=== PATIENT | male | born 1930 ===

== ENCOUNTER 2016-07-03 10:52 | Inpatient (IN) | payer OTHER ==
--- NOTE | 2016-07-03 19:14 | GHP ---
[f rep st] HISTORY AND PHYSICAL POST ADMISSION PHYSICIAN EVALUATION AND REHABILITATION TREATMENT PLAN DATE OF ADMISSION: 07/03/2016 DATE OF EVALUATION: July 03, 2016. TIME OF EVALUATION: 1700. REFERRING FACILITY: [facility]. REFERRING PHYSICIAN: Dr. Arriaga IMPAIRMENT GROUP: 1.2. 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 ETIOLOGIC DIAGNOSIS: Right body involvement (left brain). HISTORY OF PRESENT ILLNESS: Mr. Blackman was admitted to [facility] on 06/25/2016, with a headache, and right upper and lower extremity numbness and weakness. He also had difficulty speaking. A head CT was done, which showed a left thalamic hemorrhage of approximately 1.8 cm. He was quite hypertensive with a systolic blood pressure over 200. He has a history of pulmonary emboli and had been on rivaroxaban. This was reversed pharmacologically, and his blood pressure was controlled initially with nicardipine and hydralazine. Subsequently, he was put on amlodipine with improved blood pressure control. He had delirium and combativeness while he was in the intensive care unit, requiring treatment with Precedex. He recovered from the delirium. He was eventually treated with quetiapine, and did not continue to be combative. Due to his history of pulmonary emboli and the contraindication of anticoagulation due to his hemorrhage, an inferior vena cava filter was placed to protect against subsequent pulmonary emboli. He also had a duplex venous ultrasound of the legs bilaterally, which showed no evidence of a lower extremity DVT. He had serial brain imaging, which showed stable hemorrhage. He was followed by a neurosurgeon, but there was no indication for surgery. He was initially not very willing to participate in therapies, but eventually participated, and was appropriate for discharge to inpatient rehabilitation. He was begun on atorvastatin, as well as amlodipine. LABORATORY DATA: In the hospital, the most recent CBC that I find, from 2016, showed an elevated white blood cell count of 13.4, hemoglobin and hematocrit were normal at 14.2 and 42.2, his platelet count was normal at 228. There was a predominance of neutrophils with 84% neutrophils. Serum chemistries on 06/28/2016, showed a slightly low potassium at 3.4, a low CO2 at 14, an elevated chloride at 113. Otherwise, renal function and electrolytes were within normal limits. Calcium was slightly low at 8. Magnesium was normal and phosphorus was normal. He had an MRSA nasal screen by PCR, which was negative for MRSA. Brain MRI on 06/26/2016, also showed punctate focus of old hemorrhage in the right thalamus, as well as moderate white matter small vessel ischemic disease, and mild age-related atrophy. There was an echocardiogram done, which showed mild concentric LVH, normal left ventricular systolic function with an ejection fraction of 60-65%, a dilation of the ascending aorta at 4 cm, a dilated aortic root at 4.2 cm, [id number] aortic insufficiency, and trace mitral regurgitation. PRECAUTIONS: He is a fall risk. He has aspiration precautions. ACTIVE COMORBIDITIES: He has the tier 3 comorbidity of hemiparesis, otherwise he has no active tier 1, tier 2, or tier 3 comorbidities. PAST MEDICAL HISTORY: 1. Pulmonary emboli. 2. Previous TIA or CVA. 3. Hypertension with likely noncompliance with antihypertensive medications. 4. 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 He used a walker at baseline and with history of frequent falls. PAST SURGICAL HISTORY: He denies history of surgeries. PREHOSPITAL MEDICATIONS: Rivaroxaban and an unknown antihypertensive. ADMISSION MEDICATIONS: 1. Amlodipine 10 mg p.o. daily. 2. Atorvastatin 40 mg p.o. daily. 3. Quetiapine 25 mg p.o. q.h.s. 4. Tamsulosin 0.4 mg p.o. daily. ALLERGIES: There are no known drug allergies. FAMILY HISTORY: Noncontributory. PSYCHOSOCIAL HISTORY: He is retired and he is a . He lives alone. He has a son in [place], who is involved in his care, and he has an adopted daughter , who is a nurse and lives in [place]. He has history of tobacco smoking, but quit a number of years ago. He has history of alcohol use, but also quit several years ago. 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 REVIEW OF SYSTEMS: He denies vision changes or difficulty swallowing. He reports that he is weak on his right upper and lower extremities. He reports that he has decreased sensation bilaterally in his lower legs. He reports diarrhea but no abdominal pain, and he has a reduced appetite. There is no nausea or vomiting. He denies chest pain or palpitations. He denies cough or dyspnea. He denies joint pain or joint swelling. He reports that he is unaware of whether he has an urge to urinate or whether he is urinating, and he reports he feels thirsty. Otherwise, a 10-point review of systems is negative. PHYSICAL EXAMINATION: VITAL SIGNS: Blood pressure is 136/95, heart rate is 84 , respiratory rate is 16, oxygen saturation is 95% on room air. Temperature is 36.6 degrees. His weight is 83.3 kg. His body mass index is 23.6. GENERAL: This is a somewhat unkempt elderly man, appears his chronologic age, lying in bed, alert, cooperative, and in no acute distress. HEENT: Extraocular movements are intact. Pupils are equal, round, and reactive to light. Mucous membranes are dry. Dentition is in fair condition. NECK: Supple. HEART: There is a regular rate and rhythm with no murmurs, rubs, or gallops. LUNGS: Clear to auscultation bilaterally. ABDOMEN: Soft, nontender, nondistended, with normoactive bowel sounds and no hepatosplenomegaly. EXTREMITIES: There is no cyanosis, clubbing, or edema. Radial pulses are 2+ bilaterally. Pedal pulses are not palpable. His toenails are quite dystrophic. NEUROLOGIC: He is alert and oriented x3. Cranial nerves 2-12 are grossly intact, other than lateral deviation of the left eye upon accommodation. The left upper and lower extremities are without weakness. The right upper extremity hand fuel verification technician is 4+/5. Biceps is 4/5. Triceps is 3+/5. The right lower extremity: His hip flexor is 5/5. His quadriceps is 4+/5, and his hamstrings are 3/5. He has extinction of double simultaneous stimulation on the right lower leg, and sensation is somewhat diminished on the left lower leg. Otherwise, sensation is within normal limits to light touch. Deep tendon reflexes are 2+ bilaterally at the biceps and patella, and are diminished at the Achilles. PSYCHIATRIC: He is emotionally labile when discussing his 's and other issues, but denies depression or anxiety. CURRENT LEVEL OF FUNCTION: Per the preadmission screen, regarding diet, feeding and swallowing, he was noted to require setup and supervision, and per communication with the discharging nurse at [facility], he was on a pureed diet with thin liquids. Grooming was accomplished with moderate assistance. For bathing, he needed assistance. For dressing, he needed assistance. For toileting, he needed assistance. Transfers required maximal assistance using a front-wheeled walker. For balance, he required supervision. His endurance was poor. Gait was accomplished with moderate assist of 2 people. Regarding communication, he was noted to have mild dysarthria. For cognition, he was needing cues. Regarding safety precautions, he was noted to have fall precautions and to have poor balance. IMPRESSION: Mr. Blackman is an 86-year-old man with a history of hypertension and pulmonary emboli, who suffered a left thalamic hemorrhage on 06/25/2016. He was admitted to [facility], where neuro imaging revealed stability, and no need for surgical intervention. Also, revealed the presence of an old right thalamic hemorrhage. He was very hypertensive. Blood pressure was brought under control. He was begun on atorvastatin as well for stroke prevention. An IVC filter was placed as he could not be continued on rivaroxaban. He had an episode of delirium requiring sedation, and subsequent improvement with use of quetiapine to promote sleep. With his acute issues stabilized, and participating in therapies, he is appropriate for inpatient rehabilitation. His goal is to return home with assistance as needed. For a safe discharge, he will need to achieve modified independence with mobility, cognition and swallowing. It is likely that he will require assistance with homemaking and medication management. He and his family will need education regarding his neurologic condition. He will receive therapy with physical therapy, occupational therapy, and speech and language pathology on a modified schedule, 45-60 minutes for each discipline per day, on 5-7 days per week, to total 15 hours per week or more. His expected duration of stay is 12-14 days. It is anticipated that upon discharge, he will continue to benefit from home health services, including nursing, speech and language pathology, a nurse's aide, occupational therapy and physical therapy. ASSESSMENT AND PLAN: 1. Left thalamic hemorrhage with right-sided hemiplegia,. Physical and occupational therapy to optimize mobility and activities of daily living; stroke prevention with blood pressure control, as well as atorvastatin. 2. Hypertension, which was malignant hypertension upon admission to the hospital. Appears to be adequately controlled with amlodipine 10 mg daily. Continue amlodipine and monitor blood pressure 3. Dysphasia. He will be assessed and treated per Speech and Language Pathology. 4. Possible cognitive impairment. He will be assessed and treated by Speech and Language Pathology. 5. Coagulopathy with history of pulmonary embolus. Anticoagulation is contraindicated in the short term following brain hemorrhage. Eventual plan for possible reinitiation of anticoagulation will be discussed if possible with the treating team at [facility], and followup regarding his hemorrhage will be determined as well. 6. Likely peripheral vascular disease. We will obtain a podiatry consult for toenail management and reduction of risk for skin breakdown or infection of the feet. 7. Aortic insufficiency and dilated proximal ascending aorta. He will have blood pressure control, as well as atorvastatin. He will be monitored for any signs or symptoms of congestive heart failure, and he can follow up with Cardiology following his discharge. 8. Delirium. He is currently alert and oriented x3 and cooperative. Quetiapine will be continued for the short term and will be tapered and discontinued, assuming that his behavior continues to be appropriate. 9. Possible benign prostatic hypertrophy. He has been discharged with tamsulosin. This will be continued. He reports that he has reduced awareness of need to urinate, is unclear whether or not there has been urinary incontinence as well. He will be treated with the rehabilitation bladder program, including timed voiding q.2 hours while awake and bladder scan for postvoid residual on an as-needed basis. 10. Self-reported diarrhea. He was treated with several laxatives while he was in the hospital. He will be monitored for normal bowel movements. There is no indication that he needs any antibiotics, so I will not screen for Clostridium difficile. 11. Code status discussion is recorded in his records from [facility], and he requested Do Not Resuscitate. This will be continued. /[id number]/MODL MTDD
[2016-07-03] MEDS ORDERED: QUEtiapine FUMARATE 25 MG TAB PO SCH (21:00)
[2016-07-04] MEDS: TAMSULOSIN HCL 0.4 MG CAP PO SCH (08:18)
[2016-07-04] MEDS: ATORVASTATIN CALCIUM 40 MG TAB PO SCH (08:18)
[2016-07-04 08:59] LABS: % IMMATURE GRANULYOCYTES 0.3 % (0.0-1.1); ABSOLUTE IMMATURE GRANULOCYTES 0.03 10^3/uL (0.00-0.10); ADD DIFF? NO; ADD MORPH? NO; ADD SCAN? NO; ATYPICAL LYMPHOCYTE FLAG 20 (0-99); FRAGMENT RBC FLAG 0 (0-99); HEMATOCRIT 37.5 % (40.0-51.0); HEMOGLOBIN 12.3 g/dL (13.7-17.5); LEFT SHIFT FLG 0 (0-99); LIPEMIA HEMOLYSIS FLAG 80 (0-99); MEAN CELL HEMOGLOBIN 29.6 pg (27.9-34.1); MEAN CELL HEMOGLOBIN CONCENTR. 32.8 g/dL (32.4-36.7); MEAN CELL VOLUME 90.1 fL (81.5-99.8); MEAN PLATELET VOLUME 9.4 fL (8.7-11.7); PLATELET CLUMPS FLAG 20 (0-99); PLATELET COUNT 255 10^3/uL (150-400); RED BLOOD CELL COUNT 4.16 10^6/uL (4.40-6.38); RED CELL DISTRIBUTION WIDTH 14.5 % (11.5-15.2)
[2016-07-04 09:09] LABS: ALANINE AMINOTRANSFERASE 28 IU/L (21-72); ALBUMIN 3.2 g/dL (3.5-5.0); ALKALINE PHOSPHATASE 99 IU/L (38-126); ANION GAP 11 mEq/L (8-16); ASPARTATE AMINOTRANSFERASE 30 IU/L (17-59); BILIRUBIN,TOTAL 0.7 mg/dL (0.1-1.4); CALCIUM 8.6 mg/dL (8.5-10.4); CARBON DIOXIDE 20 mEq/l (22-31); CHLORIDE 111 mEq/L (97-110); CREATININE 1.1 mg/dL (0.7-1.3); GLOMERULAR FILTRATION RATE > 60; GLUCOSE 83 mg/dL (70-100); POTASSIUM 4.2 mEq/L (3.5-5.2); SODIUM 142 mEq/L (134-144); TOTAL PROTEIN 5.5 g/dL (6.3-8.2)
--- NOTE | 2016-07-04 09:40 | SOAPPROG ---
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 s/p IVC filter placement, and delirium in the hospital: * Left thalamic hemorrhage with right-sided hemiplegia,. Physical and occupational therapy to optimize mobility and activities of daily living; stroke prevention with blood pressure control, as well as atorvastatin. * Hypertension, which was malignant hypertension upon admission to the hospital. Adequately controlled with amlodipine 10 mg daily. Continue amlodipine and monitor blood pressure * Dysphagia. He will be assessed and treated per Speech and Language Pathology. * Possible cognitive impairment. He will be assessed and treated by Speech and Language Pathology. * Coagulopathy with history of pulmonary embolus. Anticoagulation is contraindicated in the short term following brain hemorrhage. Eventual plan for possible reinitiation of anticoagulation will be discussed if possible with the treating team at [facility], and followup regarding his hemorrhage will be determined as well. * Likely peripheral vascular disease. Podiatry consult for toenail management and reduction of risk for skin breakdown or infection of the feet. * Aortic insufficiency and dilated proximal ascending aorta. He will have blood pressure control, as well as atorvastatin. He will be monitored for any signs or symptoms of congestive heart failure, and he can follow up with Cardiology following his discharge. * Delirium. Alert and oriented x3 and cooperative. Reduce quetiapine from 25 mg QHS to 12.5 mg QHS starting 07/04/16. Monitor sleep and mental status. * Possible benign prostatic hypertrophy. Continue tamsulosin. He reports that he has reduced awareness of need to urinate, is unclear whether or not there has been urinary incontinence as well. He will be treated with the rehabilitation bladder program, including timed voiding q.2 hours while awake and bladder scan for postvoid residual on an as-needed basis. * Diarrhea. He was treated with several laxatives while he was in the hospital. Expect return of normal bowel movements. 07/04/16 15:01 Subjective: Slept well. Still having diarrhea. Has begun working with therapies but not yet very hopeful re functional recovery. No f/c, cough/dyspnea. Objective: Vital Signs Temp Pulse Resp BP Pulse Ox 36.4 C 67 17 125/80 H 96 07/04/16 06:10 07/04/16 06:10 07/04/16 06:10 07/04/16 08:18 07/04/16 06:10 Laboratory Results 07/04/16 05:30 07/04/16 05:30 07/03/16 07/04/16 07/05/16 05:59 05:59 05:59 Intake Total 500 354 Output Total 300 Balance 200 354 Physical Exam - Physical Exam General Appearance: WD/WN, alert, no apparent distress Respiratory: No respiratory distress, No accessory muscle use Cardiac/Chest: No edema Skin: normal color, warm/dry Neuro/Psych: alert, normal mood/affect, other (Expressive aphasia? Does word- substitutions.) ICD10 Worksheet Patient Problems: Problems Problem Status Onset HTN (hypertension) Acute Thalamic hemorrhage Acute
--- NOTE | 2016-07-04 09:41 | PDOREHIP ---
Admission [facility] - Admission - 3 Day Assessment Period Admission Date/Day 1: 07/03/16 Day 2: 07/04/16 Day 3: 07/05/16 - Active Diagnoses Comorbidities and Co-existing Conditions at Admission: 46466. PVD or PAD - Skin Conditions Unhealed Pressure Ulcer (1 or more/Stage 1 or >)-Admission: 0. No
[2016-07-04] MEDS ORDERED: ACETAMINOPHEN 160 MG/5 ML UDCUP PO PRN (12:12)
[2016-07-04] MEDS: QUEtiapine FUMARATE 25 MG TAB PO SCH (23:20)
[2016-07-05] MEDS ORDERED: MAG HYDROX/AL HYDROX/SIMETH 30 ML UDCUP PO PRN (09:02)
[2016-07-05] MEDS: ATORVASTATIN CALCIUM 40 MG TAB PO SCH (09:16)
[2016-07-05] MEDS: TAMSULOSIN HCL 0.4 MG CAP PO SCH (09:16)
--- NOTE | 2016-07-05 10:27 | SOAPPROG ---
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 s/p IVC filter placement, and delirium in the hospital: * Left thalamic hemorrhage with right-sided hemiplegia,. Physical and occupational therapy to optimize mobility and activities of daily living; stroke prevention with blood pressure control, as well as atorvastatin. * Hypertension, which was malignant hypertension upon admission to the hospital. Adequately controlled with amlodipine 10 mg daily. Continue amlodipine and monitor blood pressure * Dysphagia. He will be assessed and treated per Speech and Language Pathology. * Possible cognitive impairment. He will be assessed and treated by Speech and Language Pathology. * Coagulopathy with history of pulmonary embolus. Anticoagulation is contraindicated in the short term following brain hemorrhage. Eventual plan for possible reinitiation of anticoagulation will be discussed if possible with the treating team at [facility], and followup regarding his hemorrhage will be determined as well. * Likely peripheral vascular disease. Podiatry consult for toenail management and reduction of risk for skin breakdown or infection of the feet. * Aortic insufficiency and dilated proximal ascending aorta. He will have blood pressure control, as well as atorvastatin. He will be monitored for any signs or symptoms of congestive heart failure, and he can follow up with Cardiology following his discharge. * Delirium. Alert and oriented x3 and cooperative. Reduce quetiapine from 25 mg QHS to 12.5 mg QHS starting 07/04/16. Monitor sleep and mental status. * Possible benign prostatic hypertrophy. Continue tamsulosin. He reports that he has reduced awareness of need to urinate, is unclear whether or not there has been urinary incontinence as well. He will be treated with the rehabilitation bladder program, including timed voiding q.2 hours while awake and bladder scan for postvoid residual on an as-needed basis. * Diarrhea. He was treated with several laxatives while he was in the hospital. Expect return of normal bowel movements. PCP is Jerome Pappas. Neurologist at [facility] was Dr. Jensen Reynolds. 07/05/16 10:25 Objective: Vital Signs Temp Pulse Resp BP Pulse Ox 37.1 C 71 16 142/83 H 94 07/05/16 08:00 07/05/16 08:00 07/05/16 08:00 07/05/16 09:16 07/05/16 08:00 Laboratory Results 07/04/16 05:30 07/04/16 05:30 07/04/16 07/05/16 07/06/16 05:59 05:59 05:59 Intake Total 500 654 Output Total 300 475 325 Balance 200 179 -325 ICD10 Worksheet Patient Problems: Problems Problem Status Onset HTN (hypertension) Acute Thalamic hemorrhage Acute
[2016-07-05 10:30] LABS: COLOR YELLOW; LEUKOCYTE ESTERASE,URINE NEGATIVE (NEGATIVE); NITRITE,URINE NEGATIVE (NEGATIVE)
--- NOTE | 2016-07-05 11:53 | SOAPPROG ---
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 s/p IVC filter placement, and delirium in the hospital: * Fatigue and malaise. Not due to UTI. Mild dehydration on labs yesterday, but he does not appear clinically dry. Has orthostatic hypotension; did nopt tolerate standing; BP drop supine to seated 154/83 to 118/75 with pulse increase 74 to 85. Will give 1000 cc NS at 125 cc/hr. * Left thalamic hemorrhage with right-sided hemiplegia,. Physical and occupational therapy to optimize mobility and activities of daily living; stroke prevention with blood pressure control, as well as atorvastatin. * Hypertension, which was malignant hypertension upon admission to the hospital. Adequately controlled with amlodipine 10 mg daily. Continue amlodipine and monitor blood pressure * Dysphagia. He will be assessed and treated per Speech and Language Pathology. * Possible cognitive impairment. He will be assessed and treated by Speech and Language Pathology. * Coagulopathy with history of pulmonary embolus. Anticoagulation is contraindicated in the short term following brain hemorrhage. Eventual plan for possible reinitiation of anticoagulation will be discussed if possible with the treating team at [facility], and followup regarding his hemorrhage will be determined as well. * Likely peripheral vascular disease. Podiatry consult for toenail management and reduction of risk for skin breakdown or infection of the feet. * Aortic insufficiency and dilated proximal ascending aorta. He will have blood pressure control, as well as atorvastatin. He will be monitored for any signs or symptoms of congestive heart failure, and he can follow up with Cardiology following his discharge. * Delirium. Alert and oriented x3 and cooperative. Reduce quetiapine from 25 mg QHS to 12.5 mg QHS starting 07/04/16. Monitor sleep and mental status. * Possible benign prostatic hypertrophy. Continue tamsulosin. He reports that he has reduced awareness of need to urinate, is unclear whether or not there has been urinary incontinence as well. He will be treated with the rehabilitation bladder program, including timed voiding q.2 hours while awake and bladder scan for postvoid residual on an as-needed basis. * Diarrhea. He was treated with several laxatives while he was in the hospital. Expect return of normal bowel movements. PCP is Jerome Pappas. Neurologist at [facility] was Dr. Jensen Reynolds. 07/05/16 17:10 Subjective: Had abdominal pain this morning, improved after bladder catheterization with PVR 388 prior to cath. UA with ketones, o/w unremarkable. Now c/o fatigue and "foggy" thinking. Feels chilled. Denies cough/dyspnea, dysuria. Objective: Vital Signs Temp Pulse Resp BP Pulse Ox 37.1 C 71 16 142/83 H 94 07/05/16 08:00 07/05/16 08:00 07/05/16 08:00 07/05/16 09:16 07/05/16 08:00 Laboratory Results 07/04/16 05:30 07/04/16 05:30 07/04/16 07/05/16 07/06/16 05:59 05:59 05:59 Intake Total 500 654 390 Output Total 300 475 325 Balance 200 179 65 Physical Exam - Physical Exam General Appearance: WD/WN, alert, no apparent distress Respiratory: normal breath sounds, No crackles, No rhonchi, No wheezing Cardiac/Chest: regular rate, rhythm, No edema Abdomen: normal bowel sounds, non-tender, soft, No distended Neuro/Psych: alert, normal mood/affect, oriented x 3, motor weakness (RUE with hand lead tinner 5/5, flexion 5/5, extension 4+/5.) ICD10 Worksheet Patient Problems: Problems Problem Status Onset HTN (hypertension) Acute Thalamic hemorrhage Acute
[2016-07-05] MEDS ORDERED: NS 1,000 ML IV SCH (14:45)
[2016-07-05] MEDS: QUEtiapine FUMARATE 25 MG TAB PO SCH (21:15)
[2016-07-06] MEDS: TAMSULOSIN HCL 0.4 MG CAP PO SCH (08:43)
[2016-07-06] MEDS: ATORVASTATIN CALCIUM 40 MG TAB PO SCH (08:43)
--- NOTE | 2016-07-06 10:59 | SOAPPROG ---
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 s/p IVC filter placement, and delirium in the hospital: * Fatigue and malaise. Not due to UTI. Mild dehydration on labs yesterday, but he does not appear clinically dry. Had orthostatic hypotension 07/05/16; did not tolerate standing; BP drop supine to seated 154/83 to 118/75 with pulse increase 74 to 85. Now s/p 1000 cc NS at 125 cc/hr and not feeling better. Ordered abd XR, CBC, CMP, TSH, head CT. * Left thalamic hemorrhage with right-sided hemiplegia. No extension on head CT 07/06/16. Initial FIM 39 on 07/06/16. Incontinent B&B, RUE and RLE weakness 3 /, impaired sensation, impulsive and not safe. Attempt to continue physical and occupational therapy to optimize mobility and activities of daily living. Stroke prevention with blood pressure control, as well as atorvastatin. * Possible cognitive impairment. Impaired executive function and initiation, c/ w thalamic CVA. Continue treatment with Speech and Language Pathology. * Hypertension, which was malignant hypertension upon admission to the hospital. Adequately controlled with amlodipine 10 mg daily. Continue amlodipine and monitor blood pressure * Depression. May be etiologic re anergia. Start citalopram 5 mg 07/06/16; plan to titrate if tolerated. Consider methylphenidate; would start 2.5 mg BID before breakfast and lunch. TSH wnl. * UTI? WBC, RBCs, bacteria on UA, may be due to catheterization. Nitrofurantoin started 07/06/16; D/C if Cx does not reveal pathogen. * Urinary retention. Stared tamsulosin. Continue rehabilitation bladder program. * Constipation. Continue laxatives. Added scheduled polyethylene glycol. * Dysphagia. He will be assessed and treated per Speech and Language Pathology. Advanced to DD3, thin liquids. * Coagulopathy with history of pulmonary embolus. Anticoagulation is contraindicated in the short term following brain hemorrhage. Eventual plan for possible reinitiation of anticoagulation will be discussed if possible with the treating team at [facility], and followup regarding his hemorrhage will be determined as well. * Likely peripheral vascular disease. Podiatry consult for toenail management and reduction of risk for skin breakdown or infection of the feet. * Aortic insufficiency and dilated proximal ascending aorta. He will have blood pressure control, as well as atorvastatin. He will be monitored for any signs or symptoms of congestive heart failure, and he can follow up with Cardiology following his discharge. * Delirium. Alert and oriented x3 . Has not been taking quetiapine; d/c . Monitor sleep and mental status. * Possible benign prostatic hypertrophy. Continue tamsulosin. He reports that he has reduced awareness of need to urinate, is unclear whether or not there has been urinary incontinence as well. He will be treated with the rehabilitation bladder program, including timed voiding q.2 hours while awake and bladder scan for postvoid residual on an as-needed basis. * Diarrhea. He was treated with several laxatives while he was in the hospital. Expect return of normal bowel movements. PCP is Jerome Pappas. Neurologist at [facility] was Dr. Jensen Reynolds. 07/06/16 15:05 Subjective: C/O malaise, feeling cold, abdominal pain, back pain. Did not sleep well. Reduced appetite. Unwilling to participate in therapies today. No cough, dyspnea, f/c, dysuria. Objective: Vital Signs Temp Pulse Resp BP Pulse Ox 36.8 C 70 16 144/86 H 96 07/06/16 07:24 07/06/16 07:24 07/06/16 07:24 07/06/16 08:43 07/06/16 07:24 Laboratory Results 07/04/16 05:30 07/04/16 05:30 07/05/16 07/06/16 07/07/16 05:59 05:59 05:59 Intake Total 654 1945 300 Output Total 475 725 Balance 179 1220 300 Physical Exam - Physical Exam General Appearance: WD/WN, alert, mild distress Respiratory: normal breath sounds, No crackles, No rhonchi, No wheezing Cardiac/Chest: regular rate, rhythm, No edema Abdomen: normal bowel sounds, non-tender, soft, No distended Neuro/Psych: alert, motor weakness (RUE & RLE), depressed affect, other (Able to arise to seated from supine with min assist.), No abnormal qa consultant II-XII, No aphasia ICD10 Worksheet Patient Problems: Problems Problem Status Onset HTN (hypertension) Acute Thalamic hemorrhage Acute
[2016-07-06 12:08] LABS: % IMMATURE GRANULYOCYTES 0.5 % (0.0-1.1); ABSOLUTE IMMATURE GRANULOCYTES 0.05 10^3/uL (0.00-0.10); ADD DIFF? NO; ADD MORPH? NO; ADD SCAN? NO; ATYPICAL LYMPHOCYTE FLAG 10 (0-99); FRAGMENT RBC FLAG 0 (0-99); HEMATOCRIT 36.3 % (40.0-51.0); HEMOGLOBIN 12.4 g/dL (13.7-17.5); LEFT SHIFT FLG 0 (0-99); LIPEMIA HEMOLYSIS FLAG 90 (0-99); MEAN CELL HEMOGLOBIN 29.7 pg (27.9-34.1); MEAN CELL HEMOGLOBIN CONCENTR. 34.2 g/dL (32.4-36.7); MEAN CELL VOLUME 87.1 fL (81.5-99.8); MEAN PLATELET VOLUME 9.1 fL (8.7-11.7); PLATELET CLUMPS FLAG 0 (0-99); PLATELET COUNT 284 10^3/uL (150-400); RED BLOOD CELL COUNT 4.17 10^6/uL (4.40-6.38); RED CELL DISTRIBUTION WIDTH 14.3 % (11.5-15.2)
[2016-07-06 12:24] LABS: ALANINE AMINOTRANSFERASE 31 IU/L (21-72); ALBUMIN 3.3 g/dL (3.5-5.0); ALKALINE PHOSPHATASE 100 IU/L (38-126); ANION GAP 9 mEq/L (8-16); ASPARTATE AMINOTRANSFERASE 27 IU/L (17-59); BILIRUBIN,TOTAL 0.5 mg/dL (0.1-1.4); CALCIUM 8.5 mg/dL (8.5-10.4); CARBON DIOXIDE 20 mEq/l (22-31); CHLORIDE 111 mEq/L (97-110); GLOMERULAR FILTRATION RATE > 60; GLUCOSE 93 mg/dL (70-100); POTASSIUM 3.9 mEq/L (3.5-5.2); SODIUM 140 mEq/L (134-144); TOTAL PROTEIN 5.7 g/dL (6.3-8.2)
[2016-07-06 13:21] LABS: COLOR YELLOW; LEUKOCYTE ESTERASE,URINE NEGATIVE (NEGATIVE); NITRITE,URINE NEGATIVE (NEGATIVE)
[2016-07-06 13:24] LABS: BACTERIA 4+ /hpf (NONE SEEN); MUCUS 1+ /lpf (NONE-1+); WBC,URINE 15-25 /hpf (0-3)
[2016-07-06] MEDS: CITALOPRAM 20 MG TAB PO SCH (18:39)
[2016-07-06] MEDS: POLYETHYLENE GLYCOL 3350 17 GM PKT PO SCH (18:40)
[2016-07-06] MEDS: NITROFURANTOIN MACROBID 100 MG CAP PO SCH (19:56)
[2016-07-06] MEDS: ACETAMINOPHEN 650 MG/20.3 ML UDCUP PO PRN (21:29)
[2016-07-06] MEDS: MELATONIN 3 MG TAB PO SCH (21:29)
[2016-07-06] MEDS ORDERED: GABAPENTIN 300 MG CAP PO ONE (22:15)
[2016-07-07] MEDS: GABAPENTIN 300 MG CAP PO SCH ×3 (09:09→21:07)
--- NOTE | 2016-07-07 09:25 | SOAPPROG ---
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 s/p IVC filter placement, and delirium in the hospital: 07/07 all medical issues are new to this provider. VS stable in normal range today, will continue to monitor in setting of prior hx of PE. * Fatigue and malaise. Lack of participation likely due to UTI, participating much better per OT this morning. Also had hydration and abx for UTI. Ordered abd XR, CBC, CMP, TSH, head CT. abd -> CXR improved, abdominal unremarkable. Head CT with no new findings, improving hemorrhage and stable atrophy and microvascular ischemic disease. * Left thalamic hemorrhage with right-sided hemiplegia. No extension on head CT 07/06/16. Initial FIM 39 on 07/06/16. Incontinent B&B, RUE and RLE weakness 3 /5, impaired sensation, impulsive and not safe. Attempt to continue physical and occupational therapy to optimize mobility and activities of daily living. Stroke prevention with blood pressure control, as well as atorvastatin. * Possible cognitive impairment. Impaired executive function and initiation, c/ w thalamic CVA. Continue treatment with Speech and Language Pathology. * Depression. May be etiologic re anergia. Start citalopram 5 mg 07/06/16; plan to titrate if tolerated. Consider methylphenidate; would start 2.5 mg BID before breakfast and lunch. TSH wnl. * UTI? WBC, RBCs, bacteria on UA, may be due to catheterization. Nitrofurantoin started 07/06/16; D/C if Cx does not reveal pathogen. * Urinary retention. Stared tamsulosin. Continue rehabilitation bladder program. * Constipation. Continue laxatives. Added scheduled polyethylene glycol. * Diarrhea. He was treated with several laxatives while he was in the hospital. Expect return of normal bowel movements. * Dysphagia. He will be assessed and treated per Speech and Language Pathology. Advanced to DD3, thin liquids. * Coagulopathy with history of pulmonary embolus. Anticoagulation is contraindicated in the short term following brain hemorrhage. Eventual plan for possible reinitiation of anticoagulation will be discussed if possible with the treating team at [facility], and followup regarding his hemorrhage will be determined as well. Plan to obtain additional records from [facility] regarding prior PE. Stable/ Improving: * Likely peripheral vascular disease. Podiatry consult for toenail management and reduction of risk for skin breakdown or infection of the feet. * Aortic insufficiency and dilated proximal ascending aorta. He will have blood pressure control, as well as atorvastatin. He will be monitored for any signs or symptoms of congestive heart failure, and he can follow up with Cardiology following his discharge. * Delirium. Alert and oriented x3 . Has not been taking quetiapine; d/c . Monitor sleep and mental status. * Possible benign prostatic hypertrophy. Continue tamsulosin. He reports that he has reduced awareness of need to urinate, is unclear whether or not there has been urinary incontinence as well. He will be treated with the rehabilitation bladder program, including timed voiding q.2 hours while awake and bladder scan for postvoid residual on an as-needed basis. * Hypertension, which was malignant hypertension upon admission to the hospital. Adequately controlled with amlodipine 10 mg daily. Continue amlodipine and monitor blood pressure PCP is Jerome Pappas. Neurologist at [facility] was Dr. Jensen Reynolds. 07/07/16 09:17 Subjective: CC: Vital sign changes, UTI Overnight he had some changes in his vital signs, elevated temperature (not quite fever), tachy, mildly decreased O2 sats to 92. Improved on recheck. Yesterday he was quite lethargic and unwilling to participate, but today much better per nursing and OT reports. Pt feels good, slept well. Still confused and poor historian, but denies dyspnea, chills, chest pain, bladder pain. UA + for WBC, and culture with GNR, lactose fermenting, susceptibilities pending. CXR improving consolidations, head CT with no new hemorrhage or worsening ( personally visualized, agree with interpretation), and abdominal film with stool , but otherwise normal. Started on macrobid yesterday for UTI. Objective: Vital Signs Temp Pulse Resp BP Pulse Ox 37.5 C 85 18 111/78 95 07/06/16 21:54 07/06/16 21:54 07/06/16 21:54 07/06/16 21:54 07/06/16 21:54 Laboratory Results 07/06/16 11:25 07/06/16 11:25 07/06/16 07/07/16 07/08/16 05:59 05:59 05:59 Intake Total 7884 274 Output Total 725 175 Balance 1220 175 Physical Exam - Physical Exam General Appearance: alert, no apparent distress EENT: No scleral icterus (R), No scleral icterus (L) Respiratory: lungs clear, normal breath sounds, No respiratory distress, No accessory muscle use, No rales, No rhonchi, No prolonged expiration, No pleural rub, No retractions, No splinting, No pain on movement Cardiac/Chest: normal peripheral pulses, regular rate, rhythm Abdomen: non-tender, soft Skin: normal color, warm/dry Extremities: No pedal edema, No swelling Neuro/Psych: alert, normal mood/affect, cognition abnormalities (Poor historian , oriented x 2/3 (not date), and could not explain why he was in hospital) ICD10 Worksheet Patient Problems: Problems Problem Status Onset HTN (hypertension) Acute Lethargy Acute Thalamic hemorrhage Acute - ICD10 Problem Qualifiers (1) Lethargy
[2016-07-07] MEDS: POLYETHYLENE GLYCOL 3350 17 GM PKT PO SCH (09:44)
[2016-07-07] MEDS: NITROFURANTOIN MACROBID 100 MG CAP PO SCH ×2 (09:44→21:07)
[2016-07-07] MEDS: ATORVASTATIN CALCIUM 40 MG TAB PO SCH (09:45)
[2016-07-07] MEDS: TAMSULOSIN HCL 0.4 MG CAP PO SCH (09:45)
[2016-07-07] MEDS: CITALOPRAM 20 MG TAB PO SCH (09:46)
[2016-07-07] MEDS: MELATONIN 3 MG TAB PO SCH (21:08)
[2016-07-08] MEDS: ACETAMINOPHEN 650 MG/20.3 ML UDCUP PO PRN ×3 (02:45→21:38)
[2016-07-08] MEDS: ATORVASTATIN CALCIUM 40 MG TAB PO SCH (09:52)
[2016-07-08] MEDS: CITALOPRAM 20 MG TAB PO SCH (09:52)
[2016-07-08] MEDS: TAMSULOSIN HCL 0.4 MG CAP PO SCH (09:52)
[2016-07-08] MEDS: POLYETHYLENE GLYCOL 3350 17 GM PKT PO SCH (09:52)
[2016-07-08] MEDS: SULFAMETHOX/TMP 800/160 MG 1 TAB PO SCH ×2 (09:52→19:49)
[2016-07-08] MEDS: GABAPENTIN 300 MG CAP PO SCH ×3 (09:52→21:39)
[2016-07-08] MEDS: SENNOSIDES 1 TAB PO PRN (09:52)
[2016-07-08] MEDS: NITROFURANTOIN MACROBID 100 MG CAP PO SCH (10:29)
--- NOTE | 2016-07-08 11:04 | SOAPPROG ---
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 s/p IVC filter placement, and delirium in the hospital: 07/08, Klebsiella pna in urine, susceptible to bactrim (intermediate to nitrofurantoin), so switching to bactrim 1 DS BID for 7 additional days. Pt also noted a history of myopathy without further details, but did not think it was an issue at this time. One episode of dyspnea overnight corrected with positioning. Has not occurred before , will monitor. * Fatigue and malaise. Lack of participation likely due to UTI, participating much better per OT this morning. Also had hydration and abx for UTI. Ordered abd XR, CBC, CMP, TSH, head CT. abd -> CXR improved, abdominal unremarkable. Head CT with no new findings, improving hemorrhage and stable atrophy and microvascular ischemic disease. * Left thalamic hemorrhage with right-sided hemiplegia. No extension on head CT 07/06/16. Initial FIM 39 on 07/06/16. Incontinent B&B, RUE and RLE weakness /, impaired sensation, impulsive and not safe. Attempt to continue physical and occupational therapy to optimize mobility and activities of daily living. Stroke prevention with blood pressure control, as well as atorvastatin. * Possible cognitive impairment. Impaired executive function and initiation, c/ w thalamic CVA. Continue treatment with Speech and Language Pathology. * Depression. May be etiologic re anergia. Start citalopram 5 mg 07/06/16; plan to titrate if tolerated. Consider methylphenidate; would start 2.5 mg BID before breakfast and lunch. TSH wnl. * UTI? WBC, RBCs, bacteria on UA, may be due to catheterization. Nitrofurantoin started 07/06/16; switched to bactrim 1 DS BID on 07/08 for addl 7 day course for susceptible kelbsiella pna infection. * Urinary retention. Stared tamsulosin. Continue rehabilitation bladder program. * Constipation. Continue laxatives. Added scheduled polyethylene glycol. * Diarrhea. He was treated with several laxatives while he was in the hospital. Expect return of normal bowel movements. * Dysphagia. He will be assessed and treated per Speech and Language Pathology. Advanced to DD3, thin liquids. * Coagulopathy with history of pulmonary embolus. Anticoagulation is contraindicated in the short term following brain hemorrhage. Eventual plan for possible reinitiation of anticoagulation will be discussed if possible with the treating team at [facility], and followup regarding his hemorrhage will be determined as well. Plan to obtain additional records from [facility] regarding prior PE. * Dyspnea: one episode evening of 07/07 corrected with positioning. Monitor clinically for now. 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 No treatment for now, listing as comorbidity. Stable/ Improving: * Likely peripheral vascular disease. Podiatry consult for toenail management and reduction of risk for skin breakdown or infection of the feet. * Aortic insufficiency and dilated proximal ascending aorta. He will have blood pressure control, as well as atorvastatin. He will be monitored for any signs or symptoms of congestive heart failure, and he can follow up with Cardiology following his discharge. * Delirium. Alert and oriented x3 . Has not been taking quetiapine; d/c . Monitor sleep and mental status. * Possible benign prostatic hypertrophy. Continue tamsulosin. He reports that he has reduced awareness of need to urinate, is unclear whether or not there has been urinary incontinence as well. He will be treated with the rehabilitation bladder program, including timed voiding q.2 hours while awake and bladder scan for postvoid residual on an as-needed basis. * Hypertension, which was malignant hypertension upon admission to the hospital. Adequately controlled with amlodipine 10 mg daily. Continue amlodipine and monitor blood pressure PCP is Jerome Pappas. Neurologist at [facility] was Dr. Jensen Reynolds. 07/07/16 09:17 07/08/16 11:00 Subjective: CC: UTI Pt denies urinary symptoms, improving PVR. Klebsiella PNA on micro, susceptible to bactrim but not nitrofurantoin. No new numbness, tingling, or weakness. Continues to have some confusion. Mentioned hx of myopathy, but no additional info. Episode of dyspnea last night, corrected by positioning. Has not occurred before, no hx of heart disease. Objective: Vital Signs Temp Pulse Resp BP Pulse Ox 36.3 C 66 16 147/74 H 96 07/08/16 08:00 07/08/16 08:00 07/08/16 08:00 07/08/16 09:52 07/08/16 08:00 Microbiology 07/06/16 13:24 Urine Culture - Final Urine,Clean Catch Klebsiella Pneumoniae Ssp Pneu Laboratory Results 07/06/16 11:25 07/06/16 11:25 07/07/16 07/08/16 07/09/16 05:59 05:59 05:59 Intake Total 350 2040 Output Total 175 300 100 Balance 175 1740 -100 Physical Exam - Physical Exam General Appearance: alert, no apparent distress EENT: No scleral icterus (R), No scleral icterus (L) Respiratory: lungs clear, normal breath sounds, No respiratory distress, No accessory muscle use Cardiac/Chest: normal peripheral pulses, regular rate, rhythm Abdomen: soft, No distended Skin: normal color, warm/dry, No cyanosis Extremities: No pedal edema, No swelling Neuro/Psych: alert, cognition abnormalities (confusion, poor historian) ICD10 Worksheet Patient Problems: Problems Problem Status Onset HTN (hypertension) Acute Lethargy Acute Thalamic hemorrhage Acute Urinary tract infection Acute - ICD10 Problem Qualifiers (1) Lethargy (2) Urinary tract infection Qualifiers: Urinary tract infection type: acute cystitis Hematuria presence: without hematuria Indwelling urinary catheter type: I Encounter type: E Qualified Code(s): N30.00 - Acute cystitis without hematuria
[2016-07-08] MEDS: BISACODYL 10 MG SUPP PR PRN (19:49)
[2016-07-08] MEDS: MELATONIN 3 MG TAB PO SCH (19:49)
[2016-07-09] MEDS: POLYETHYLENE GLYCOL 3350 17 GM PKT PO SCH (08:11)
[2016-07-09] MEDS: ATORVASTATIN CALCIUM 40 MG TAB PO SCH (08:12)
[2016-07-09] MEDS: GABAPENTIN 300 MG CAP PO SCH ×3 (08:12→21:31)
[2016-07-09] MEDS: TAMSULOSIN HCL 0.4 MG CAP PO SCH (08:12)
[2016-07-09] MEDS: CITALOPRAM 20 MG TAB PO SCH (08:12)
[2016-07-09] MEDS: SENNOSIDES 1 TAB PO PRN (08:12)
[2016-07-09] MEDS: SULFAMETHOX/TMP 800/160 MG 1 TAB PO SCH ×2 (08:12→21:31)
[2016-07-09] MEDS ORDERED: CITALOPRAM 20 MG TAB PO ONE (10:02)
--- NOTE | 2016-07-09 10:08 | SOAPPROG ---
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 s/p IVC filter placement, and delirium in the hospital: * Fatigue and malaise. Not due to UTI. Dehydration/orthostatic hypotension corrected wit IV fluids. TSH wnl, no extension of CVA on head CT . Due to thalamic CVA vs premorbid. Trial of modafinil starting 07/10/16. * Left thalamic hemorrhage with right-sided hemiplegia. No extension on head CT 07/06/16. Initial FIM 39 on 07/06/16. Incontinent B&B, RUE and RLE weakness , impaired sensation, impulsive and not safe. Attempt to continue physical and occupational therapy to optimize mobility and activities of daily living. Stroke prevention with blood pressure control, as well as atorvastatin. * Possible cognitive impairment. Impaired executive function and initiation, c/ w thalamic CVA. Continue treatment with Speech and Language Pathology. * Hypertension, which was malignant hypertension upon admission to the hospital. Adequately controlled with amlodipine 10 mg daily. Continue amlodipine and monitor blood pressure * Depression. May be etiologic re anergia. Started citalopram 5 mg 07/06/16; titrate to 10 mg starting 07/09/16. * UTI? WBC, RBCs, bacteria on UA, may be due to catheterization. Nitrofurantoin started 07/06/16; Cx Klebsiella and Abx changed to Bactrim due to resistance to nitrofurantoin. * Urinary retention. Stared tamsulosin. Continue rehabilitation bladder program. * Constipation. Continue laxatives. Added scheduled polyethylene glycol. * Dysphagia. He will be assessed and treated per Speech and Language Pathology. Advanced to DD3, thin liquids. * Coagulopathy with history of pulmonary embolus. Anticoagulation is contraindicated in the short term following brain hemorrhage. Eventual plan for possible reinitiation of anticoagulation will be discussed if possible with the treating team at [facility], and followup regarding his hemorrhage will be determined as well. * Likely peripheral vascular disease. Podiatry consult for toenail management and reduction of risk for skin breakdown or infection of the feet. * Aortic insufficiency and dilated proximal ascending aorta. He will have blood pressure control, as well as atorvastatin. He will be monitored for any signs or symptoms of congestive heart failure, and he can follow up with Cardiology following his discharge. * Delirium. Alert and oriented x3 . Has not been taking quetiapine; d/c . Monitor sleep and mental status. * Possible benign prostatic hypertrophy. Continue tamsulosin. He reports that he has reduced awareness of need to urinate, is unclear whether or not there has been urinary incontinence as well. He will be treated with the rehabilitation bladder program, including timed voiding q.2 hours while awake and bladder scan for postvoid residual on an as-needed basis. * Diarrhea. He was treated with several laxatives while he was in the hospital. Expect return of normal bowel movements. PCP is Jerome Pappas. Neurologist at [facility] was Dr. Jensen Reynolds. 07/09/16 11:10 Subjective: Continues to complain of lethargy, though reports that he's sleeping better. Denies adverse effects of citalopram. Objective: Vital Signs Temp Pulse Resp BP Pulse Ox 36.8 C 75 18 134/71 H 95 07/09/16 08:00 07/09/16 08:00 07/09/16 08:00 07/09/16 08:12 07/09/16 08:00 Microbiology 07/06/16 13:24 Urine Culture - Final Urine,Clean Catch Klebsiella Pneumoniae Ssp Pneu Laboratory Results 07/06/16 11:25 07/06/16 11:25 07/08/16 07/09/16 07/10/16 05:59 05:59 05:59 Intake Total 2040 1140 480 Output Total 300 550 Balance 1740 590 480 Physical Exam - Physical Exam General Appearance: WD/WN, alert, no apparent distress Respiratory: normal breath sounds, No crackles, No rhonchi, No wheezing Cardiac/Chest: regular rate, rhythm, No edema Skin: normal color, warm/dry Neuro/Psych: alert, normal mood/affect ICD10 Worksheet Patient Problems: Problems Problem Status Onset HTN (hypertension) Acute Lethargy Acute Thalamic hemorrhage Acute Urinary tract infection Acute
[2016-07-09] MEDS: MELATONIN 3 MG TAB PO SCH (21:31)
[2016-07-10] MEDS: POLYETHYLENE GLYCOL 3350 17 GM PKT PO SCH (08:58)
[2016-07-10] MEDS: ATORVASTATIN CALCIUM 40 MG TAB PO SCH (09:00)
[2016-07-10] MEDS ORDERED: MODAFINIL 100 MG TAB PO SCH (09:00)
[2016-07-10] MEDS: CITALOPRAM 20 MG TAB PO SCH (09:00)
[2016-07-10] MEDS: GABAPENTIN 300 MG CAP PO SCH ×3 (09:02→21:04)
[2016-07-10] MEDS: SULFAMETHOX/TMP 800/160 MG 1 TAB PO SCH ×2 (09:32→21:04)
[2016-07-10] MEDS: TAMSULOSIN HCL 0.4 MG CAP PO SCH (09:33)
--- NOTE | 2016-07-10 15:18 | SOAPPROG ---
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 s/p IVC filter placement, and delirium in the hospital: * Fatigue and malaise. Not due to UTI. Dehydration/orthostatic hypotension corrected wit IV fluids. TSH wnl, no extension of CVA on head CT . Due to thalamic CVA vs premorbid. Trial of modafinil starting 07/10/16;l tolerating w/out adverse effects. * Left thalamic hemorrhage with right-sided hemiplegia. No extension on head CT 07/06/16. Initial FIM 39 on 07/06/16. Incontinent B&B, RUE and RLE weakness 3 /5, impaired sensation, impulsive and not safe. Continue physical and occupational therapy to optimize mobility and activities of daily living. Stroke prevention with blood pressure control, as well as atorvastatin. D/W Neurologist Dr. Grider: 2nd thalamic hemorrhage and anticoagulation is likely contraindicated * Possible cognitive impairment. Impaired executive function and initiation, c/ w thalamic CVA. Continue treatment with Speech and Language Pathology. * Coagulopathy with history of pulmonary embolus. Anticoagulation is contraindicated in the short term following brain hemorrhage. Eventual plan for possible reinitiation of anticoagulation d/w PCP Dr. Pappas on 07/10/16: will consider when he follows up with PCP after discharge. Risk of fall or repeat hemorrhage may outweigh risk of DVT/PE, and there is an IVC filter in place. * HTN. Adequately controlled with amlodipine 10 mg daily. Continue amlodipine and monitor blood pressure * Depression. May be etiologic re anergia. Started citalopram 5 mg 07/06/16; titrate to 10 mg starting 07/09/16. * UTI? WBC, RBCs, bacteria on UA, may be due to catheterization. Nitrofurantoin started 07/06/16; Cx Klebsiella and Abx changed to Bactrim due to resistance to nitrofurantoin. * Urinary retention. Stared tamsulosin. Continue rehabilitation bladder program. * Constipation. Continue laxatives. Added scheduled polyethylene glycol. * Dysphagia. He will be assessed and treated per Speech and Language Pathology. Advanced to DD3, thin liquids. * Likely peripheral vascular disease. Podiatry consult for toenail management and reduction of risk for skin breakdown or infection of the feet. * Aortic insufficiency and dilated proximal ascending aorta. He will have blood pressure control, as well as atorvastatin. He will be monitored for any signs or symptoms of congestive heart failure, and he can follow up with Cardiology following his discharge. * Delirium. Alert and oriented x3 . Has not been taking quetiapine; d/c . Monitor sleep and mental status. * Possible benign prostatic hypertrophy. Continue tamsulosin. He reports that he has reduced awareness of need to urinate, is unclear whether or not there has been urinary incontinence as well. He will be treated with the rehabilitation bladder program, including timed voiding q.2 hours while awake and bladder scan for postvoid residual on an as-needed basis. * Diarrhea. He was treated with several laxatives while he was in the hospital. Expect return of normal bowel movements. PCP is Jerome Pappas. Neurologist at [facility] was Dr. Jensen Reynolds. 07/10/16 15:24 Subjective: Still with fatigue, but tolerated a full hour of CLOTH COLORS EXAMINER today. Does not think he slept well. No f/c, cough/dyspnea, dysuria. Objective: Vital Signs Temp Pulse Resp BP Pulse Ox 36.8 C 70 16 105/73 94 07/10/16 06:21 07/10/16 06:21 07/10/16 06:21 07/10/16 08:59 07/10/16 06:21 Laboratory Results 07/06/16 11:25 07/06/16 11:25 07/09/16 07/10/16 07/11/16 05:59 05:59 05:59 Intake Total 1140 840 120 Output Total 550 510 125 Balance 590 330 -5 Physical Exam - Physical Exam General Appearance: WD/WN, alert, no apparent distress Respiratory: normal breath sounds, No crackles, No rhonchi, No wheezing Cardiac/Chest: regular rate, rhythm, No edema Skin: normal color, warm/dry Neuro/Psych: alert, normal mood/affect, oriented x 3 ICD10 Worksheet Patient Problems: Problems Problem Status Onset HTN (hypertension) Acute Lethargy Acute Thalamic hemorrhage Acute Urinary tract infection Acute
[2016-07-10] MEDS: MELATONIN 3 MG TAB PO SCH (21:04)
[2016-07-11] MEDS: MODAFINIL 100 MG TAB PO SCH (06:34)
[2016-07-11] MEDS: CITALOPRAM 20 MG TAB PO SCH (09:04)
[2016-07-11] MEDS: GABAPENTIN 300 MG CAP PO SCH ×3 (09:04→20:09)
[2016-07-11] MEDS: ATORVASTATIN CALCIUM 40 MG TAB PO SCH (09:04)
[2016-07-11] MEDS: POLYETHYLENE GLYCOL 3350 17 GM PKT PO SCH (09:05)
[2016-07-11] MEDS: SULFAMETHOX/TMP 800/160 MG 1 TAB PO SCH ×2 (09:05→20:09)
[2016-07-11] MEDS: SENNOSIDES 1 TAB PO PRN (09:06)
[2016-07-11] MEDS: TAMSULOSIN HCL 0.4 MG CAP PO SCH (09:06)
--- NOTE | 2016-07-11 09:54 | SOAPPROG ---
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 s/p IVC filter placement, and delirium in the hospital: * Left thalamic hemorrhage with right-sided hemiplegia. No extension on head CT 07/06/16. Initial FIM 39 on 07/06/16; gain to 49 as of 07/11/16. Incontinent B &B, Improved function but stil reduced participation, improving however. Min - mod A [place]. Walked 10' mod A. Min A UB and LB dressing. Continue physical and occupational therapy to optimize mobility and activities of daily living. Stroke prevention with blood pressure control, as well as atorvastatin. D/W Neurologist Dr. Reynolds 07/09/16: 2nd thalamic hemorrhage and anticoagulation is likely contraindicated * Possible cognitive impairment. Impaired executive function and initiation, c/ w thalamic CVA. Self-defeating attitude. Continue treatment with Speech and Language Pathology. * Fatigue and malaise. Not due to UTI. Dehydration/orthostatic hypotension corrected wit IV fluids. TSH wnl, no extension of CVA on head CT . Due to thalamic CVA vs premorbid. Trial of modafinil starting 07/10/16;l tolerating w/out adverse effects. Improved participation in therapies 07/11/16. * Coagulopathy with history of pulmonary embolus. Anticoagulation is contraindicated in the short term following brain hemorrhage. Eventual plan for possible reinitiation of anticoagulation d/w PCP Dr. Pappas on 07/10/16: will consider when he follows up with PCP after discharge. Risk of fall or repeat hemorrhage may outweigh risk of DVT/PE, and there is an IVC filter in place. * HTN. Adequately controlled with amlodipine 10 mg daily. Continue amlodipine and monitor blood pressure * Depression. May be etiologic re anergia. Started citalopram 5 mg 07/06/16; titrate to 10 mg starting 07/09/16 and to 20 mg starting 07/12/16. * UTI? WBC, RBCs, bacteria on UA, may be due to catheterization. Nitrofurantoin started 07/06/16; Cx Klebsiella and Abx changed to Bactrim due to resistance to nitrofurantoin. * Urinary retention. Stared tamsulosin. Continue rehabilitation bladder program. * Constipation. Continue laxatives. Added scheduled polyethylene glycol. * Dysphagia. He will be assessed and treated per Speech and Language Pathology. Advanced to DD3, thin liquids. Chronic stable conditions: * Likely peripheral vascular disease. Podiatry consult for toenail management and reduction of risk for skin breakdown or infection of the feet. * Aortic insufficiency and dilated proximal ascending aorta. He will have blood pressure control, as well as atorvastatin. He will be monitored for any signs or symptoms of congestive heart failure, and he can follow up with Cardiology following his discharge. * Delirium. Alert and oriented x3 . Has not been taking quetiapine; d/c . Monitor sleep and mental status. * Possible benign prostatic hypertrophy. Continue tamsulosin. He reports that he has reduced awareness of need to urinate, is unclear whether or not there has been urinary incontinence as well. He will be treated with the rehabilitation bladder program, including timed voiding q.2 hours while awake and bladder scan for postvoid residual on an as-needed basis. PCP is Jerome Pappas. Neurologist at [facility] was Dr. Jensen Reynolds. Attended staffing, 15 min. D/W case mgmt, nursing, PT, OT, CONCESSION ATTENDANT. If improved participation continues, expect discharge 07/24/16 with goal of TANIA level of function. If poor participation, discharge to SNF by end of week 07/13/16. 07/11/16 12:29 Subjective: Slept well, feeling better today. looking forward to therapies. No cough/ dyspnea, f/c. Objective: Vital Signs Temp Pulse Resp BP Pulse Ox 36.9 C 67 16 113/62 95 07/11/16 08:00 07/11/16 08:00 07/11/16 08:00 07/11/16 09:04 07/11/16 08:00 Laboratory Results 07/06/16 11:25 07/06/16 11:25 07/10/16 07/11/16 07/12/16 05:59 05:59 05:59 Intake Total 840 320 Output Total 510 575 Balance 330 -255 - Time Spent With Patient Time Spent With Patient: Greater than 35 minutes floor time today, including more than 50% of time incoordination of care during staffing, and counseling patient. Physical Exam - Physical Exam General Appearance: WD/WN, alert, no apparent distress Respiratory: normal breath sounds, No crackles, No rhonchi, No wheezing Cardiac/Chest: regular rate, rhythm, No edema Skin: normal color, warm/dry Neuro/Psych: alert, normal mood/affect, oriented x 3 ICD10 Worksheet Patient Problems: Problems Problem Status Onset HTN (hypertension) Acute Lethargy Acute Thalamic hemorrhage Acute Urinary tract infection Acute
[2016-07-11] MEDS: MELATONIN 3 MG TAB PO SCH (20:09)
[2016-07-12] MEDS: MODAFINIL 100 MG TAB PO SCH (05:48)
[2016-07-12] MEDS: ATORVASTATIN CALCIUM 40 MG TAB PO SCH (09:12)
[2016-07-12] MEDS: POLYETHYLENE GLYCOL 3350 17 GM PKT PO SCH (09:13)
[2016-07-12] MEDS: CITALOPRAM 20 MG TAB PO SCH (09:13)
[2016-07-12] MEDS: GABAPENTIN 300 MG CAP PO SCH ×3 (09:13→21:00)
[2016-07-12] MEDS: SENNOSIDES 1 TAB PO PRN (09:13)
[2016-07-12] MEDS: SULFAMETHOX/TMP 800/160 MG 1 TAB PO SCH ×2 (09:13→21:00)
[2016-07-12] MEDS: TAMSULOSIN HCL 0.4 MG CAP PO SCH (09:13)
--- NOTE | 2016-07-12 11:38 | SOAPPROG ---
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 s/p IVC filter placement, and delirium in the hospital: * Left thalamic hemorrhage with right-sided hemiplegia. No extension on head CT 07/06/16. Initial FIM 39 on 07/06/16; gain to 49 as of 07/11/16. Incontinent B &B, Improved function but still reduced participation, improving however. Min - mod A [place]. Walked 10' mod A. Min A UB and LB dressing. Continue physical and occupational therapy to optimize mobility and activities of daily living. Stroke prevention with blood pressure control, as well as atorvastatin. D/W Neurologist Dr. Reynolds 07/09/16: 2nd thalamic hemorrhage and anticoagulation is likely contraindicated * Possible cognitive impairment. Impaired executive function and initiation, c/ w thalamic CVA. Self-defeating attitude. Continue treatment with Speech and Language Pathology. * Fatigue and malaise. Not due to UTI. Dehydration/orthostatic hypotension corrected wit IV fluids. TSH wnl, no extension of CVA on head CT . Due to thalamic CVA vs premorbid. Trial of modafinil starting 07/10/16; tolerating w/out adverse effects. Improved participation in therapies 07/11/16. * Coagulopathy with history of pulmonary embolus. Anticoagulation is contraindicated in the short term following brain hemorrhage. Eventual plan for possible reinitiation of anticoagulation d/w PCP Dr. Pappas on 07/10/16: will consider when he follows up with PCP after discharge. Risk of fall or repeat hemorrhage may outweigh risk of DVT/PE, and there is an IVC filter in place. * HTN. Adequately controlled with amlodipine 10 mg daily. Continue amlodipine and monitor blood pressure * Depression. May be etiologic re anergia. Started citalopram 5 mg 07/06/16; titrate to 10 mg starting 07/09/16 and to 20 mg starting 07/12/16. Counseling per EMERGENCY ROOM PHYSICIAN ASSISTANT. * UTI? WBC, RBCs, bacteria on UA, may be due to catheterization. Nitrofurantoin started 07/06/16; Cx Klebsiella and Abx changed to Bactrim due to resistance to nitrofurantoin. * Urinary retention. Stared tamsulosin. Continue rehabilitation bladder program. * Constipation. Continue laxatives. Added scheduled polyethylene glycol. * Dysphagia. He will be assessed and treated per Speech and Language Pathology. Advanced to DD3, thin liquids. Chronic stable conditions: * Likely peripheral vascular disease. Podiatry consult for toenail management and reduction of risk for skin breakdown or infection of the feet. * Aortic insufficiency and dilated proximal ascending aorta. He will have blood pressure control, as well as atorvastatin. He will be monitored for any signs or symptoms of congestive heart failure, and he can follow up with Cardiology following his discharge. * Delirium. Alert and oriented x3 . Has not been taking quetiapine; d/c . Monitor sleep and mental status. * Possible benign prostatic hypertrophy. Continue tamsulosin. He reports that he has reduced awareness of need to urinate, is unclear whether or not there has been urinary incontinence as well. He will be treated with the rehabilitation bladder program, including timed voiding q.2 hours while awake and bladder scan for postvoid residual on an as-needed basis. PCP is Jerome Pappas. Neurologist at [facility] was Dr. Jensen Reynolds. If improved participation continues, expect discharge 07/24/16 with goal of TANIA level of function. If poor participation, discharge to SNF by end of week . 07/12/16 11:36 Subjective: Reports that the window was left open overnight and he was chilled in the morning. Has a cough with sputum. Continue to c/o "my right side is ." O/ w w/out complaint. Objective: Vital Signs Temp Pulse Resp BP Pulse Ox 36.5 C 59 L 18 116/63 95 07/12/16 08:00 07/12/16 08:00 07/12/16 08:00 07/12/16 09:12 07/12/16 08:00 Laboratory Results 07/06/16 11:25 07/06/16 11:25 07/11/16 07/12/16 07/13/16 05:59 05:59 05:59 Intake Total 320 556 360 Output Total 575 750 175 Balance -255 -194 185 Physical Exam - Physical Exam General Appearance: WD/WN, alert, no apparent distress Respiratory: normal breath sounds, No crackles, No rhonchi, No wheezing Cardiac/Chest: regular rate, rhythm Skin: normal color, warm/dry Neuro/Psych: alert, normal mood/affect, oriented x 3, motor weakness (RUE mildly ataxic) ICD10 Worksheet Patient Problems: Problems Problem Status Onset HTN (hypertension) Acute Lethargy Acute Thalamic hemorrhage Acute Urinary tract infection Acute
[2016-07-12] MEDS: MELATONIN 3 MG TAB PO SCH (21:00)
[2016-07-13] MEDS: MODAFINIL 100 MG TAB PO SCH (06:15)
[2016-07-13] MEDS: SULFAMETHOX/TMP 800/160 MG 1 TAB PO SCH ×2 (09:27→22:02)
[2016-07-13] MEDS: TAMSULOSIN HCL 0.4 MG CAP PO SCH (09:29)
[2016-07-13] MEDS: ATORVASTATIN CALCIUM 40 MG TAB PO SCH (09:30)
[2016-07-13] MEDS: CITALOPRAM 20 MG TAB PO SCH (09:31)
[2016-07-13] MEDS: GABAPENTIN 300 MG CAP PO SCH ×3 (09:31→22:01)
--- NOTE | 2016-07-13 12:44 | SOAPPROG ---
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 s/p IVC filter placement, and delirium in the hospital: * Left thalamic hemorrhage with right-sided hemiplegia. No extension on head CT 07/06/16. Initial FIM 39 on 07/06/16; gain to 49 as of 07/11/16. Incontinent B &B, Improved function but still reduced participation. Min - mod A [place]. Walked 10' mod A; improved on 07/12/16 to 10' X 3 SBA/CGA with FWW. Min A UB and LB dressing. Continue physical and occupational therapy to optimize mobility and activities of daily living. Stroke prevention with blood pressure control, as well as atorvastatin. D/W Neurologist Dr. Reynolds 07/09/16: 2nd thalamic hemorrhage and anticoagulation is likely contraindicated * Cognitive impairment. Impaired executive function and initiation, c/w thalamic CVA. Self-defeating attitude. Continue treatment with Speech and Language Pathology. * [place] per TEST HOLE DRILLER eval. He reads lips. Needs careful face to face communication. * Fatigue and malaise. Not due to UTI. Dehydration/orthostatic hypotension corrected wit IV fluids. TSH wnl, no extension of CVA on head CT . Due to thalamic CVA vs premorbid. Trial of modafinil starting 07/10/16; tolerating w/out adverse effects. Improved participation in therapies 07/11/16. * Coagulopathy with history of pulmonary embolus. Anticoagulation is contraindicated in the short term following brain hemorrhage. Eventual plan for possible reinitiation of anticoagulation d/w PCP Dr. Pappas on 07/10/16: will consider when he follows up with PCP after discharge. Risk of fall or repeat hemorrhage may outweigh risk of DVT/PE, and there is an IVC filter in place. * HTN. Adequately controlled with amlodipine 10 mg daily. Continue amlodipine and monitor blood pressure * Depression. May be etiologic re anergia. Started citalopram 5 mg 07/06/16; titrate to 10 mg starting 07/09/16 and to 20 mg starting 07/12/16. Counseling per DISTRICT LEADER. * UTI? WBC, RBCs, bacteria on UA, may be due to catheterization. Nitrofurantoin started 07/06/16; Cx Klebsiella and Abx changed to Bactrim due to resistance to nitrofurantoin. * Urinary retention. Stared tamsulosin. Continue rehabilitation bladder program. * Constipation. Continue laxatives. Added scheduled polyethylene glycol. * Dysphagia. He will be assessed and treated per Speech and Language Pathology. Advanced to DD3, thin liquids. Chronic stable conditions: * Likely peripheral vascular disease. Podiatry consult for toenail management and reduction of risk for skin breakdown or infection of the feet. * Aortic insufficiency and dilated proximal ascending aorta. He will have blood pressure control, as well as atorvastatin. He will be monitored for any signs or symptoms of congestive heart failure, and he can follow up with Cardiology following his discharge. * Delirium. Alert and oriented x3 . Has not been taking quetiapine; d/c . Monitor sleep and mental status. * Possible benign prostatic hypertrophy. Continue tamsulosin. He reports that he has reduced awareness of need to urinate, is unclear whether or not there has been urinary incontinence as well. He will be treated with the rehabilitation bladder program, including timed voiding q.2 hours while awake and bladder scan for postvoid residual on an as-needed basis. PCP is Jerome Pappas. Neurologist at [facility] was Dr. Jensen Reynolds. If improved participation continues, expect discharge 07/24/16 with goal of [place] level of function. If poor participation, discharge to SNF by end of week . 07/13/16 12:38 Subjective: Was noted to be uncooperative with OT this morning; subsequently working with TEST HOLE DRILLER. No specific complaints, feeling a little better, slept better last night. Objective: Vital Signs Temp Pulse Resp BP Pulse Ox 36.5 C 69 16 120/64 94 07/13/16 08:00 07/13/16 08:00 07/13/16 08:00 07/13/16 09:30 07/13/16 08:00 Laboratory Results 07/06/16 11:25 07/06/16 11:25 07/12/16 07/13/16 07/14/16 05:59 05:59 05:59 Intake Total 556 1140 Output Total 750 950 150 Balance -194 190 -150 Physical Exam - Physical Exam General Appearance: WD/WN, alert, no apparent distress Respiratory: normal breath sounds, No crackles, No rhonchi, No wheezing Cardiac/Chest: regular rate, rhythm, No edema Skin: normal color, warm/dry Neuro/Psych: alert, normal mood/affect, oriented x 3, motor weakness (RUE weakness & ataxia) ICD10 Worksheet Patient Problems: Problems Problem Status Onset HTN (hypertension) Acute Lethargy Acute Thalamic hemorrhage Acute Urinary tract infection Acute
[2016-07-13] MEDS: BISACODYL 10 MG SUPP PR PRN (15:47)
[2016-07-13] MEDS: POLYETHYLENE GLYCOL 3350 17 GM PKT PO SCH (15:47)
[2016-07-13] MEDS: MELATONIN 3 MG TAB PO SCH (22:02)
[2016-07-14] MEDS: MODAFINIL 100 MG TAB PO SCH (05:31)
[2016-07-14] MEDS: POLYETHYLENE GLYCOL 3350 17 GM PKT PO SCH (09:04)
[2016-07-14] MEDS: CITALOPRAM 20 MG TAB PO SCH (09:05)
[2016-07-14] MEDS: GABAPENTIN 300 MG CAP PO SCH ×2 (09:05→17:17)
[2016-07-14] MEDS: ATORVASTATIN CALCIUM 40 MG TAB PO SCH (09:06)
--- NOTE | 2016-07-14 09:06 | SOAPPROG ---
SOAP Progress Note Assessment/Plan: 86 yo M who suffered a left thalamic hemorrhage on 06/25/16 with malignant hypertension while on rivaroxaban for history of pulmonary emboli. s/p IVC filter placement, and delirium in the hospital: * Left thalamic hemorrhage with right-sided hemiplegia. No extension on head CT 07/06/16. Initial FIM 39 on 07/06/16; gain to 49 as of 07/11/16. Incontinent B &B, Improved function but still reduced participation. Min - mod A [place]. Walked 10' mod A; improved on 07/12/16 to 10' X 3 SBA/CGA with FWW. Min A UB and LB dressing. Continue physical and occupational therapy to optimize mobility and activities of daily living. Stroke prevention with blood pressure control, as well as atorvastatin. D/W Neurologist Dr. Reynolds 07/09/16: 2nd thalamic hemorrhage and anticoagulation is likely contraindicated * Cognitive impairment. Impaired executive function and initiation, c/w thalamic CVA. Self-defeating attitude. Continue treatment with Speech and Language Pathology. * [place] per GARDE MANGER eval. He reads lips. Needs careful face to face communication. * Fatigue and malaise. Not due to UTI. Dehydration/orthostatic hypotension corrected wit IV fluids. TSH wnl, no extension of CVA on head CT . Due to thalamic CVA vs premorbid. Trial of modafinil starting 07/10/16; tolerating w/out adverse effects. Improved participation in therapies 07/11/16. * Coagulopathy with history of pulmonary embolus. Anticoagulation is contraindicated in the short term following brain hemorrhage. Eventual plan for possible reinitiation of anticoagulation d/w PCP Dr. Pappas on 07/10/16: will consider when he follows up with PCP after discharge. Risk of fall or repeat hemorrhage may outweigh risk of DVT/PE, and there is an IVC filter in place. * HTN. Adequately controlled with amlodipine 10 mg daily. Continue amlodipine and monitor blood pressure * Depression. May be etiologic re anergia. Started citalopram 5 mg 07/06/16; titrate to 10 mg starting 07/09/16 and to 20 mg starting 07/12/16. Counseling per SENIOR LINUX UNIX ENGINEER. * UTI? WBC, RBCs, bacteria on UA, may be due to catheterization. Nitrofurantoin started 07/06/16; Cx Klebsiella and Abx changed to Bactrim due to resistance to nitrofurantoin. Course completed will monitor for s+s * Urinary retention. Stared tamsulosin. Continue rehabilitation bladder program. * Constipation. Continue laxatives. Added scheduled polyethylene glycol. * Dysphagia. He will be assessed and treated per Speech and Language Pathology. Advanced to DD3, thin liquids. Chronic stable conditions: * Likely peripheral vascular disease. Podiatry consult for toenail management and reduction of risk for skin breakdown or infection of the feet. * Aortic insufficiency and dilated proximal ascending aorta. He will have blood pressure control, as well as atorvastatin. He will be monitored for any signs or symptoms of congestive heart failure, and he can follow up with Cardiology following his discharge. * Delirium. Alert and oriented x3 . Has not been taking quetiapine; d/c . Monitor sleep and mental status. * Possible benign prostatic hypertrophy. Continue tamsulosin. He reports that he has reduced awareness of need to urinate, is unclear whether or not there has been urinary incontinence as well. He will be treated with the rehabilitation bladder program, including timed voiding q.2 hours while awake and bladder scan for postvoid residual on an as-needed basis. PCP is Jeroem Pappas. Neurologist at [facility] was Dr. Jensen Reynolds. If improved participation continues, expect discharge 07/24/16 with goal of TANIA level of function. If poor participation, discharge to SNF by end of week . Subjective: No events. No complaints this a.m. Denies dysuria/fevers. Objective: Vital Signs Temp Pulse Resp BP Pulse Ox 36.9 C 57 L 17 98/52 L 95 07/14/16 05:41 07/14/16 05:41 07/14/16 05:41 07/14/16 05:41 07/14/16 05:41 Laboratory Results 07/06/16 11:25 07/06/16 11:25 07/13/16 07/14/16 07/15/16 05:59 05:59 05:59 Intake Total 1140 336 Output Total 950 750 250 Balance 190 414 -250 - Pending Discharge Pending Discharge Within 24 Hours: No Pending Discharge Within 48 Hours: No Physical Exam - Physical Exam General Appearance: alert, no apparent distress Neck: supple Respiratory: lungs clear Cardiac/Chest: regular rate, rhythm Abdomen: non-tender, soft Skin: normal color, warm/dry Neuro/Psych: alert, normal mood/affect, cognition abnormalities, depressed affect ICD10 Worksheet Patient Problems: Problems Problem Status Onset HTN (hypertension) Acute Lethargy Acute Thalamic hemorrhage Acute Urinary tract infection Acute
[2016-07-14] MEDS: SULFAMETHOX/TMP 800/160 MG 1 TAB PO SCH ×2 (09:07→20:40)
[2016-07-14] MEDS: TAMSULOSIN HCL 0.4 MG CAP PO SCH (09:08)
[2016-07-14] MEDS: MELATONIN 3 MG TAB PO SCH (20:41)
[2016-07-15] MEDS: GABAPENTIN 300 MG CAP PO SCH ×4 (00:02→20:29)
[2016-07-15] MEDS: MODAFINIL 100 MG TAB PO SCH (05:03)
[2016-07-15] MEDS: POLYETHYLENE GLYCOL 3350 17 GM PKT PO SCH (08:25)
[2016-07-15] MEDS: ATORVASTATIN CALCIUM 40 MG TAB PO SCH (08:27)
[2016-07-15] MEDS: CITALOPRAM 20 MG TAB PO SCH (08:28)
[2016-07-15] MEDS: TAMSULOSIN HCL 0.4 MG CAP PO SCH (08:29)
[2016-07-15] MEDS: SULFAMETHOX/TMP 800/160 MG 1 TAB PO SCH (08:29)
[2016-07-15] MEDS ORDERED: MODAFINIL 100 MG TAB PO SCH (08:35)
--- NOTE | 2016-07-15 08:38 | SOAPPROG ---
SOAP Progress Note Assessment/Plan: 86 yo M who suffered a left thalamic hemorrhage on 06/25/16 with malignant hypertension while on rivaroxaban for history of pulmonary emboli. s/p IVC filter placement, and delirium in the hospital: * Left thalamic hemorrhage with right-sided hemiplegia. No extension on head CT 07/06/16. Initial FIM 39 on 07/06/16; gain to 49 as of 07/11/16. Incontinent B &B, Improved function but still reduced participation. Min - mod A [place]. Walked 10' mod A; improved on 07/12/16 to 10' X 3 SBA/CGA with FWW. Min A UB and LB dressing. Continue physical and occupational therapy to optimize mobility and activities of daily living. Stroke prevention with blood pressure control, as well as atorvastatin. D/W Neurologist Dr. Reynolds 07/09/16: 2nd thalamic hemorrhage and anticoagulation is likely contraindicated * Cognitive impairment. Impaired executive function and initiation, c/w thalamic CVA. Self-defeating attitude. Continue treatment with Speech and Language Pathology. * TOGIAK per [employer] SYSTEM TESTER eval. He reads lips. Needs careful face to face communication. * Fatigue and malaise. Not due to UTI. Dehydration/orthostatic hypotension corrected wit IV fluids. TSH wnl, no extension of CVA on head CT . Due to thalamic CVA vs premorbid. Trial of modafinil starting 07/10/16; tolerating w/out adverse effects. Improved participation in therapies 07/11/16. Ongoing complaints, increased provigil to 200mg 07/15 * Coagulopathy with history of pulmonary embolus. Anticoagulation is contraindicated in the short term following brain hemorrhage. Eventual plan for possible reinitiation of anticoagulation d/w PCP Dr. Pappas on 07/10/16: will consider when he follows up with PCP after discharge. Risk of fall or repeat hemorrhage may outweigh risk of DVT/PE, and there is an IVC filter in place. * HTN. Adequately controlled with amlodipine 10 mg daily. Continue amlodipine and monitor blood pressure * Depression. May be etiologic re anergia. Started citalopram 5 mg 07/06/16; titrate to 10 mg starting 07/09/16 and to 20 mg starting 07/12/16. Counseling per DIGITAL MEDIA COORDINATOR. * UTI? WBC, RBCs, bacteria on UA, may be due to catheterization. Nitrofurantoin started 07/06/16; Cx Klebsiella and Abx changed to Bactrim due to resistance to nitrofurantoin. Course completed will monitor for s+s * Urinary retention. Stared tamsulosin. Continue rehabilitation bladder program. * Constipation. Continue laxatives. Added scheduled polyethylene glycol. * Dysphagia. He will be assessed and treated per Speech and Language Pathology. Advanced to DD3, thin liquids. Chronic stable conditions: * Likely peripheral vascular disease. Podiatry consult for toenail management and reduction of risk for skin breakdown or infection of the feet. * Aortic insufficiency and dilated proximal ascending aorta. He will have blood pressure control, as well as atorvastatin. He will be monitored for any signs or symptoms of congestive heart failure, and he can follow up with Cardiology following his discharge. * Delirium. Alert and oriented x3 . Has not been taking quetiapine; d/c . Monitor sleep and mental status. * Possible benign prostatic hypertrophy. Continue tamsulosin. He reports that he has reduced awareness of need to urinate, is unclear whether or not there has been urinary incontinence as well. He will be treated with the rehabilitation bladder program, including timed voiding q.2 hours while awake and bladder scan for postvoid residual on an as-needed basis. PCP is Jerome Pappas. Neurologist at [facility] was Dr. Jensen Reynolds. If improved participation continues, expect discharge 07/24/16 with goal of TANIA level of function. If poor participation, discharge to SNF by end of week . Subjective: Reports some frequent awakenings but not clear etiology, nocturia? Reports ongoing "fogginess" and malaise in the mornings. Denies fevers or dysuria. Objective: Vital Signs Temp Pulse Resp BP Pulse Ox 36.6 C 64 18 113/59 L 93 07/15/16 08:00 07/15/16 08:00 07/15/16 08:00 07/15/16 08:26 07/15/16 08:00 Laboratory Results 07/06/16 11:25 07/06/16 11:25 07/14/16 07/15/16 07/16/16 05:59 05:59 05:59 Intake Total 336 904 Output Total 750 800 Balance -414 104 - Pending Discharge Pending Discharge Within 24 Hours: No Pending Discharge Within 48 Hours: No Physical Exam - Physical Exam General Appearance: alert, no apparent distress Neck: supple Respiratory: lungs clear, normal breath sounds Cardiac/Chest: regular rate, rhythm Abdomen: non-tender, soft Skin: warm/dry Neuro/Psych: alert, cognition abnormalities, depressed affect ICD10 Worksheet Patient Problems: Problems Problem Status Onset HTN (hypertension) Acute Lethargy Acute Thalamic hemorrhage Acute Urinary tract infection Acute
[2016-07-15 19:25] VITALS: RESP 16
[2016-07-15] MEDS: MELATONIN 3 MG TAB PO SCH (20:29)
[2016-07-16 06:35] VITALS: PULSE 65; TEMP 97.7; O2SAT 93
[2016-07-16] MEDS: ATORVASTATIN CALCIUM 40 MG TAB PO SCH (09:23)
[2016-07-16] MEDS: POLYETHYLENE GLYCOL 3350 17 GM PKT PO SCH (09:23)
[2016-07-16] MEDS: CITALOPRAM 20 MG TAB PO SCH (09:23)
[2016-07-16 09:24] VITALS: BP 108/68
[2016-07-16] MEDS: GABAPENTIN 300 MG CAP PO SCH ×2 (09:24→15:23)
[2016-07-16] MEDS: TAMSULOSIN HCL 0.4 MG CAP PO SCH (09:24)
--- NOTE | 2016-07-16 13:41 | PDOREHIP ---
Admission [facility] - Admission - 3 Day Assessment Period Admission Date/Day 1: 07/03/16 Day 2: 07/04/16 Day 3: 07/05/16 Discharge [facility] - Discharge - 3 Day Assessment Period 2 Days Prior to Anticipated Discharge Date: 07/22/16 1 Day Prior to Anticipated Discharge Date: 07/23/16 Anticipated Discharge Date: 07/24/16 - Discharge Skin Conditions Unhealed Pressure Ulcer (1 or more/Stage 1 or >)-Discharge: 0. No - Healed Pressure Ulcer(s) Pressure Ulcer-Present on Admit and Healed on Discharge: No # Stage 1 Pressure Ulcers Present on Admit and Healed on DC: 0 # Stage 2 Pressure Ulcers Present on Admit and Healed on DC: 0 # Stage 3 Pressure Ulcers Present on Admit and Healed on DC: 0 # Stage 4 Pressure Ulcers Present on Admit and Healed on DC: 0
--- NOTE | 2016-07-16 15:26 | GDS ---
[f rep st] DISCHARGE SUMMARY ADMITTING DIAGNOSIS: 1. 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 DISCHARGE DIAGNOSIS: 1. 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 OTHER DISCHARGE DIAGNOSES: 1. Hard of hearing. 2. Fatigue and malaise. 3. History of pulmonary embolus. 4. Hypertension. 5. Depression. 6. Urinary retention. CONSULTATIONS: There were none. PROCEDURES: There were none. COMPLICATIONS: There were none. HISTORY AND HOSPITAL COURSE: Mr. Blackman was admitted to [facility] on 06/25/2016 with a headache and right upper and lower extremity numbness and weakness. He also had difficulty speaking. A head CT showed a left thalamic hemorrhage of approximately 1.8 cm. He also was very hypertensive with a systolic blood pressure over 200. He has a history of pulmonary emboli and had been on rivaroxaban. The rivaroxaban was reversed pharmacologically and his blood pressure was controlled initially with nicardipine and hydralazine. Subsequently he was put on amlodipine with improved control. He had delirium in the hospital. His condition was stabilized. Serial brain imaging showed no extension of the hemorrhage, so he was transferred to inpatient rehabilitation. He had slow improvement in rehabilitation. His initial functional independence measure (FIM) was 39 on 07/06/2016 which is consistent with needing assistance in all activities of daily living and mobility. He had gained to 49 as of 07/11 which still is consistent with usp level of care. He was incontinent of bowel and bladder. He had reduced participation in therapies. He required minimal to moderate assistance for transferring. He was able to walk eventually as far as 20 feet with standby assist or to contact guard assist using a front-wheeled walker. He needed minimal assistance for getting dressed. He was found to have cognitive impairment including impaired executive function and initiation which seemed consistent with thalamic CVA. He also appeared to have signs and symptoms of depression. He was treated initially with citalopram , started at 5 mg daily with no adverse effects, and so was eventually titrated to 20 mg per day. It is unclear whether he had significant lifting of his depression. Due to his reduced initiation, he was begun on modafinil at 100 mg daily starting 07/10/2016. He did not show adverse effects. He seemed to have improved participation in therapies several days later, but ultimately did not continue willingness to participate in therapy consistently, or to take direction from the therapists regarding compensatory strategies for his deficits due to the stroke. Modafinil was increased to 200 mg daily starting and on 07/16/2016 he reports that his thinking feels less "foggy." Regarding a history of pulmonary embolus, anticoagulation was discussed with neurologist Dr. Harish Reynolds who saw him at [facility]. Dr. Reynolds felt strongly that the patient should not resume anticoagulation and noted that he had a history of a right thalamic hemorrhage previously, which Dr. Reynolds had treated. This was discussed further with the patient's primary care provider, Dr. Pappas, who would consider the question of resuming anticoagulation whenever he is seen in followup by Dr. Pappas. Hypertension was well controlled with amlodipine 10 mg per day. He had a urinary tract infection which cultured Klebsiella. Initially, he was treated with nitrofurantoin, but the Klebsiella was resistant to this medication. He was changed to Bactrim and completed a course of antibiotics. He did not have recurrent signs or symptoms of urinary tract infection. He patient had urinary retention when he came which resolved after treatment with tamsulosin. Other labs and studies during his hospitalization: He had anemia on 07/04/2016 with a hemoglobin of 12.5 and a hematocrit of 37.5. These were stable 2 days later with a hemoglobin of 12.4 and a hematocrit of 36.3. He had a mildly elevated white blood cell count at 9.6 on July 06 which may have been due to the urinary tract infection. Serum chemistries were overall within normal limits, but for a slightly high chloride and a slightly low carbon dioxide, when tested both on 07/04 and 07/06. His albumin was somewhat low at 3.2. This improved to 3.3. His TSH was normal at 2.56. These labs were obtained is in evaluation of the patient's lethargy. Urinalysis on 07/06 was consistent with urinary tract infection with 50-25 white blood cells and 4+ bacteria. Urine culture grew Klebsiella pneumoniae, which was resistant to ampicillin and of intermediate resistance to nitrofurantoin. Otherwise, it was sensitive to antibiotics. DISCHARGE PHYSICAL EXAM: VITAL SIGNS: Blood pressure is 108/68, heart rate is 65, respiratory rate is 16, oxygen saturation is 93% on room air, temperature is 36.5 degrees centigrade. GENERAL: This is a somewhat unkempt, elderly man who appears his chronologic age, lying in bed, cooperative and in no acute distress. HEART: There is a regular rate and rhythm with no murmurs, rubs, or gallops. LUNGS: Clear to auscultation bilaterally. ABDOMEN: Soft, nontender , nondistended with normoactive bowel sounds. EXTREMITIES: There is no cyanosis, clubbing, or edema. NEUROLOGIC: He is alert and oriented x3. He is somewhat lethargic. He is able to arise from supine to seated in bed with minimal assist via holding his right hand so he could pull against the examiner stand to sit up. He appears to have good strength in the right upper extremity. DISCHARGE PLAN: 1. Condition upon discharge is fair. 2. Activity: He needs assistance for safety with all aspects of mobility and activities of daily living. 3. Diet is regular. 4. Date of next appointment: He will follow up with his new attending physician at the [facility] within 1-2 weeks. 5. He can follow up additionally with his primary care provider, Dr. Jerome Pappas. MEDICATIONS AT DISCHARGE: 1. Acetaminophen 650 mg p.o. q.4 hours p.r.n. 2. Amlodipine 10 mg p.o. daily. 3. Atorvastatin 40 mg p.o. daily. 4. Citalopram 20 mg p.o. daily. 5. Gabapentin 300 mg p.o. t.i.d. 6. Modafinil 200 mg p.o. daily at 0600 hours. 7. Polyethylene glycol 17 g p.o. daily. 8. Senna 1-2 tabs p.o. b.i.d. p.r.n. constipation. 9. Tamsulosin 0.5 mg p.o. daily. ISSUES TO BE ADDRESSED AT FOLLOWUP: 1. Functional status, mobility, and activities of daily living: He will continue physical therapy and occupational therapy at the [facility]. 2. Cognitive function: He will continue speech and language pathology at the [facility]. 3. Fatigue and malaise: Modafinil was increased on the day before discharge from 100 to 200 mg. Advise monitoring for initiative and willingness to participate in therapies. If he lacks initiative and is not willing to participate in therapies, then would question the utility of the modafinil and consider discontinuing. 4. Depression. Advise continuing citalopram. 5. Aortic insufficiency and a dilated proximal ascending aorta were seen on echocardiogram at [facility]. He was treated with blood pressure control and atorvastatin. He did not show signs or symptoms of congestive heart failure. He should have routine follow up with Cardiology sometime in the future. Copy requested to: [employer] [facility] [address] [place] [address] Jerome Pappas MD /[id number]/MODL MTDD
== END 2016-07-16 17:30 | DRG 57 ==
LOC: BREH 16:22
PROVIDERS: ADMIT Internal Medicine; ATTEND Internal Medicine
DX: I69.151 Hemiplegia and hemiparesis following nontraumatic intracerebral hemorrhage affecting right dominant side (principal); I69.118 Other symptoms and signs involving cognitive functions following nontraumatic intracerebral hemorrhage; I69.121 Dysphasia following nontraumatic intracerebral hemorrhage; R33.9 Retention of urine, unspecified; N39.0 Urinary tract infection, site not specified; B96.1 Klebsiella pneumoniae [K. pneumoniae] as the cause of diseases classified elsewhere; R53.81 Other malaise; R53.82 Chronic fatigue, unspecified; F32.9 Major depressive disorder, single episode, unspecified; H91.93 Unspecified hearing loss, bilateral; I10 Essential (primary) hypertension; I77.810 Thoracic aortic ectasia; I35.1 Nonrheumatic aortic (valve) insufficiency; G62.9 Polyneuropathy, unspecified; M47.12 Other spondylosis with myelopathy, cervical region; Z86.711 Personal history of pulmonary embolism; Z66 Do not resuscitate
CPT/HCPCS: 92507-GN; 92522-GN; 92526; 92610; 97110-GO; 97110-GP; 97112-GO; 97112-GP; 97116-GP; 97163-GP; 97166-GO; 97530-GO; 97530-GP; 97535-GO